=== PATIENT | female | born 1950 | race Caucasian/White ===

== ENCOUNTER → 2017-12-28 | Outpatient (CLI) | payer OTHER | LOC: M.RAD 11:00 | DX: Z12.31 Encounter for screening mammogram for malignant neoplasm of breast (principal) ==

== ENCOUNTER → 2021-04-16 | Outpatient (CLI) | payer OTHER | LOC: M.CT 04-04 10:00 | PROVIDERS: ATTEND Family Medicine | DX: Z13.6 Encounter for screening for cardiovascular disorders (principal); E78.1 Pure hyperglyceridemia; N95.1 Menopausal and female climacteric states; I25.10 Atherosclerotic heart disease of native coronary artery without angina pectoris ==

== ENCOUNTER → 2021-04-16 | Outpatient (CLI) | payer OTHER | LOC: M.RAD 03-27 10:29 | PROVIDERS: ATTEND Family Medicine | DX: Z12.31 Encounter for screening mammogram for malignant neoplasm of breast (principal); Z13.820 Encounter for screening for osteoporosis; M85.88 Other specified disorders of bone density and structure, other site; E78.00 Pure hypercholesterolemia, unspecified; M81.0 Age-related osteoporosis without current pathological fracture ==

== ENCOUNTER → 2021-04-18 | Outpatient (CLI) | payer OTHER ==
[2021-04-18 09:22] LABS: CREATININE 0.8 mg/dL (0.6-1.3)
== END ==
LOC: M.LAB 04-16 13:39 → M.CT 10:00
PROVIDERS: ATTEND Family Medicine
DX: R91.8 Other nonspecific abnormal finding of lung field (principal); I25.10 Atherosclerotic heart disease of native coronary artery without angina pectoris

== ENCOUNTER → 2021-05-07 | Outpatient (CLI) | payer OTHER ==
[~2021-05-07] VITALS: Ht 167.6 cm; Wt 78.9 kg
[2021-05-07] VITALS (12 sets, daily range): BP systolic 103–125; BP diastolic 38–859
[~2021-05-07] MED LIST: SYNTHROID125 MC1 PO
[2021-05-07 12:24] LABS: HEMATOCRIT 42.8 % (37.0-47.0); HEMOGLOBIN 14.3 gm/dL (12.0-15.0); MCH 32.4 pg (26.0-34.0); MCHC 33.4 g/dL (28.0-37.0); MPV 9.7 fl. (7.2-11.1); RBC 4.41 mil/uL (4.20-5.00); RDW-CV 14.5 % (10.5-14.5); WBC 9.6 thou/uL (4.0-11.0)
[2021-05-07 12:39] LABS: APTT 31.9 Seconds (25.0-31.3); PROTIME 10.3 Seconds (9.20-11.50)
--- NOTE | 2021-05-13 14:07 | PATH ---
[address] [address] PATHOLOGY RPT PROCEDURE Name: ARTIE YOUNG Room: [facility] Mike#: [id number] Admission: 05/07/21 Date of : 48 Discharge: Report #: [id number] Path Case #: [id number] [facility] Accession Number: [id number] . 01 Material submitted: . lung - RT LOWER LUNG MASS. Modifiers: right, lower . 01 Clinical history: . 71YO FEMALE WITH MULTIPLE BILATERAL LUNG MASSES IDENTIFIED ON A CARDIO SCAN. FURTHER WORKUP IDENTIFIED A LIVER MASS AND BILATERAL ADRENAL MASSES. . 02 Diagnosis: Lung "right lower lung mass", needle biopsy: - ADENOCARCINOMA, MODERATELY DIFFERENTIATED. - Please see comment. (AMAYA:jamison; 05/10/2021) . . The results are given to nurse Tri for Dr. Wilkerson, on 05/10/2021 at approximately 1400. MBR 05/10/2021 1412 Local . 02 Comment: Evaluation of the lung mass shows an invasive adenocarcinoma with a variable morphologic pattern. Some of the glands are lined by large atypical cells with eosinophilic cytoplasm. Others are lined by mucinous-type epithelium. There is a background mixed acute and chronic inflammatory infiltrate. The morphologic and immunophenotypic characteristics of the tumor are not specific. Potential sites of origin would include upper GI/hepatobiliary and lung (despite negative staining for TTF-1 and Napsin A). Lower GI and adrenal gland neoplasms would be unlikely due to the immunophenotype. Suggest clinical correlation. . The case is seen in co-review, with consensus, by Dr. Lenin Carrera on 05/10/2021. . (LIZZYK:jamison; 05/10/2021) . 02 Electronically signed: . Teto Forbes MD, Pathologist NPI- [id number] . 01 Gross description: . The specimen is received in formalin, labeled "Artie Young, right lower lung mass". Received are 3 needle cores of white-barajas tissue ranging in length from 0.5 to 0.8 cm by 0.1 cm in diameter. The specimen is submitted entirely in A1-A3. Also received [place] [address] PATHOLOGY RPT PROCEDURE Name: ARTIE YOUNG LUIZ Room: [facility]#: [id number] Admission: 05/07/21 Date of : 48 Discharge: Report #: [id number] Path Case #: [id number] are multiple pale barajas fragments of needle core tissue measuring 0.5 x 0.3 x 0.1 cm in aggregate dimension. The specimen is filtered and entirely submitted in cassette A4. ([facility]; 05/07/2021) NRI/NRI 05/07/2021 2129 Local . 02 Microscopic: . Immunohistochemical stain results (properly controlled): CK7 - negative. CK20 - negative. Napsin A - negative. TTF-1 - negative. GATA3 - negative. ER - negative. MART-1 - negative. CDX2 - negative. (AMAYA:jamison; 05/10/2021) . 02 Pathologist provided ICD-10: C34.31 . 02 CPT . 016853, [id number], [id number] Specimen Comment: A courtesy copy of this report has been sent to [phone], [phone] Specimen Comment: [id number] Specimen Comment: Report sent to / DR SZYMANSKI Specimen Comment: A duplicate report has been generated due to demographic updates. Performed at: 01 [facility] [address] [id number] MD Trevor Whitley MD Phone: [phone] Performed at: 02 [facility] [address] [id number] MD Lenin Carrera MD Phone: [phone]
== END | disposition home or self-care (01) ==
LOC: M.LAB 11:43 → M.CT 13:00
PROVIDERS: Radiology Diagnostic Radiology; ATTEND Internal Medicine
DX: R91.8 Other nonspecific abnormal finding of lung field (principal); C34.31 Malignant neoplasm of lower lobe, right bronchus or lung; E03.9 Hypothyroidism, unspecified; F17.210 Nicotine dependence, cigarettes, uncomplicated; Z79.01 Long term (current) use of anticoagulants; Z79.899 Other long term (current) drug therapy